=== PATIENT | female | born 1955 | race Caucasian/White ===

== ENCOUNTER 2018-06-27 13:55 | Inpatient (IN) | payer OTHER ==
[2018-06-27 14:26] LABS: ADD MAN DIFF? NO
[2018-06-27 14:44] LABS: WHITE BLOOD COUNT 6.5 10^3/ul (4.8-10.8)
[2018-06-27 14:44] LABS: BASOPHILS % 0.5 % (0.0-2.0); EOSINOPHILS # 0.1 10^3/ul (0.0-0.5); HEMATOCRIT 44.2 % (37.0-47.0); HEMOGLOBIN 14.4 g/dl (12.0-16.0); LYMPHOCYTES # 2.8 10^3/ul (0.8-2.9); LYMPHOCYTES % 43.4 % (15.0-51.0); MEAN CORPUSCULAR HEMOGLOBIN 30.1 pg (29.0-33.0); MEAN CORPUSCULAR HGB CONC 32.6 g/dl (32.0-37.0); MEAN CORPUSCULAR VOLUME 92.3 fl (82.0-101.0); MEAN PLATELET VOLUME 10.2 fl (7.4-10.4); MONOCYTE # 0.5 10^3/ul (0.3-0.9); MONOCYTES % 7.3 % (0.0-11.0); NEUTROPHILS % 46.6 % (39.0-77.0); PLATELET COUNT 277 10^3/UL (140-415); RED BLOOD COUNT 4.79 10^6/ul (4.20-5.40); RED CELL DISTRIBUTION WIDTH 12.2 % (11.5-14.5)
[2018-06-27 14:54] LABS: ANION GAP 10 (5-13); BLOOD UREA NITROGEN 13 mg/dl (7-20); CALCIUM 9.6 mg/dl (8.4-10.2); CARBON DIOXIDE 28 mmol/L (21-31); CHLORIDE 103 mmol/L (97-110); CHOLESTEROL 239 mg/dl (100-200); CREATININE 0.64 mg/dl (0.44-1.00); Estimated GFR > 60 mL/min (>60); GLUCOSE 102 mg/dl (70-220); HDL CHOLESTEROL 34 mg/dl (35-98); LDL CHOLESTEROL,CALCULATED 157 mg/dl; POTASSIUM 4.1 mmol/L (3.5-5.1); SODIUM 141 mmol/L (135-144); TRIGLYCERIDES 241 mg/dl (0-149)
[2018-06-27 14:55] LABS: ADD UMIC YES; UR ASCORBIC ACID NEGATIVE (NEGATIVE); UR BILIRUBIN (Dip) NEGATIVE (NEGATIVE); UR BLOOD (Dip) NEGATIVE (NEGATIVE); UR CLARITY SLIGHTLY CLOUDY (CLEAR); UR COLOR YELLOW (YELLOW); UR GLUCOSE (Dip) NEGATIVE (NEGATIVE); UR KETONES (Dip) NEGATIVE (NEGATIVE); UR LEUKOCYTE ESTERASE (Dip) 2+ Leu/ul (NEGATIVE); UR NITRITE (Dip) NEGATIVE (NEGATIVE); UR RBC 1 /HPF (0-5); UR SPECIFIC GRAVITY (Dip) 1.012 (1.003-1.030); UR SQUAMOUS EPITHELIAL CELL FEW /HPF (FEW); UR TOTAL PROTEIN (Dip) NEGATIVE (NEGATIVE); UR UROBILINOGEN (Dip) NEGATIVE (NEGATIVE); UR WBC 3 /HPF (0-5)
[2018-06-27 15:04] LABS: INR 0.95; PROTIME 12.8 Sec (11.9-14.9)
[2018-06-27 15:05] LABS: PARTIAL THROMBOPLASTIN TIME 28.6 Sec (23.0-35.0); TROPONIN-I < 0.012 ng/ml (0.000-0.120)
[2018-06-27 15:06] LABS: AMPHETAMINE/METHAMPHETAMINE Negative (NEGATIVE); BARBITURATES Negative (NEGATIVE); BENZODIAZEPINES Negative (NEGATIVE); CANNABINOIDS Negative (NEGATIVE); COCAINE Negative (NEGATIVE); OPIATES Negative (NEGATIVE)
[2018-06-27 15:23] LABS: HEMOGLOBIN A1C 5.7 % (0-5.9)
[2018-06-27] MEDS: ASPIRIN 81 MG TAB PO (16:03)
[2018-06-27] MEDS ORDERED: ONDANSETRON 4 MG INJ IV ×2 (16:30→17:00)
[2018-06-27] MEDS ORDERED: ACETAMINOPHEN 325 MG TAB PO ×2 (16:30→17:00)
[2018-06-27] MEDS ORDERED: NACL 0.9% 3 ML SYG IV (17:00)
[2018-06-27] MEDS ORDERED: HYDROCODONE/APAP (5/325) TAB PO (17:00)
[2018-06-27] MEDS: predniSONE 20 MG TAB PO (17:34)
[2018-06-27] MEDS: CIPROFLOXACIN 500 MG TAB PO (17:34)
[2018-06-27] MEDS: SOD CHLORIDE 0.9% 1,000 ML IV (17:35)
[2018-06-27] MEDS: ATORVASTATIN 80 MG TAB PO (20:24)
[2018-06-27] MEDS: GEMFIBROZIL 600 MG TAB PO (20:24)
[2018-06-27] MEDS: VALACYCLOVIR 500 MG TAB PO (20:24)
[2018-06-28] MEDS: CIPROFLOXACIN 500 MG TAB PO ×2 (05:38→17:55)
[2018-06-28 05:40] LABS: ADD MAN DIFF? NO
[2018-06-28 05:48] LABS: BASOPHILS % 0.1 % (0.0-2.0); HEMATOCRIT 43.3 % (37.0-47.0); HEMOGLOBIN 14.2 g/dl (12.0-16.0); LYMPHOCYTES # 1.4 10^3/ul (0.8-2.9); MEAN CORPUSCULAR HEMOGLOBIN 29.8 pg (29.0-33.0); MEAN CORPUSCULAR HGB CONC 32.8 g/dl (32.0-37.0); MEAN CORPUSCULAR VOLUME 90.8 fl (82.0-101.0); MEAN PLATELET VOLUME 10.4 fl (7.4-10.4); MONOCYTE # 0.2 10^3/ul (0.3-0.9); MONOCYTES % 3.4 % (0.0-11.0); NEUTROPHIL # 5.3 10^3/ul (1.6-7.5); NEUTROPHILS % 75.9 % (39.0-77.0); PLATELET COUNT 265 10^3/UL (140-415); RED BLOOD COUNT 4.77 10^6/ul (4.20-5.40); RED CELL DISTRIBUTION WIDTH 12.5 % (11.5-14.5)
[2018-06-28 06:15] LABS: ALANINE AMINOTRANSFERASE 17 IU/L (13-69); ALBUMIN 5.2 g/dl (3.3-4.9); ALBUMIN/GLOBULIN RATIO 2.08; ALKALINE PHOSPHATASE 76 IU/L (42-121); ANION GAP 17 (5-13); ASPARTATE AMINO TRANSFERASE 29 IU/L (15-46); BILIRUBIN,INDIRECT 1.6 mg/dl (0-1.1); BILIRUBIN,TOTAL 1.6 mg/dl (0.2-1.3); BLOOD UREA NITROGEN 12 mg/dl (7-20); CALCIUM 9.5 mg/dl (8.4-10.2); CARBON DIOXIDE 24 mmol/L (21-31); CHLORIDE 103 mmol/L (97-110); CREATININE 0.46 mg/dl (0.44-1.00); Estimated GFR > 60 mL/min (>60); GLUCOSE 126 mg/dl (70-220); MAGNESIUM 1.8 mg/dl (1.7-2.5); POTASSIUM 4.1 mmol/L (3.5-5.1); SODIUM 144 mmol/L (135-144); TOTAL PROTEIN 7.7 g/dl (6.1-8.1)
[2018-06-28] MEDS: ALLOPURINOL 100 MG TAB PO (08:43)
[2018-06-28] MEDS: predniSONE 20 MG TAB PO (08:43)
[2018-06-28] MEDS: GEMFIBROZIL 600 MG TAB PO ×2 (08:43→21:20)
[2018-06-28] MEDS: LISINOPRIL 5 MG TAB PO (08:43)
[2018-06-28] MEDS: HYDROCHLOROTHIAZIDE 25 MG TAB PO (08:44)
[2018-06-28] MEDS: ASPIRIN 81 MG TAB PO (08:44)
[2018-06-28] MEDS: ATENOLOL 50 MG TAB PO (08:44)
[2018-06-28] MEDS: CARBOXYMETHYLCELLULOSE 0.5% 0.4 ML OPH LEFT EYE ×4 (09:00→21:32)
[2018-06-28] MEDS: VALACYCLOVIR 500 MG TAB PO ×3 (09:00→21:20)
[2018-06-28] MEDS: SOD CHLORIDE 0.9% 1,000 ML IV (14:00)
[2018-06-28] MEDS: IOHEXOL 100 ML (15:33)
[2018-06-28] MEDS: SOD CHLORIDE 0.9% 100 ML (15:33)
[2018-06-29 05:25] LABS: ADD MAN DIFF? NO
[2018-06-29 05:34] LABS: WHITE BLOOD COUNT 10.6 10^3/ul (4.8-10.8)
[2018-06-29 05:34] LABS: BASOPHILS % 0.3 % (0.0-2.0); EOSINOPHILS % 0.4 % (0.0-7.0); HEMATOCRIT 41.8 % (37.0-47.0); HEMOGLOBIN 13.7 g/dl (12.0-16.0); LYMPHOCYTES # 2.8 10^3/ul (0.8-2.9); LYMPHOCYTES % 26.3 % (15.0-51.0); MEAN CORPUSCULAR HEMOGLOBIN 30.1 pg (29.0-33.0); MEAN CORPUSCULAR HGB CONC 32.8 g/dl (32.0-37.0); MEAN CORPUSCULAR VOLUME 91.9 fl (82.0-101.0); MEAN PLATELET VOLUME 10.5 fl (7.4-10.4); MONOCYTE # 0.8 10^3/ul (0.3-0.9); MONOCYTES % 7.9 % (0.0-11.0); NEUTROPHIL # 6.8 10^3/ul (1.6-7.5); NEUTROPHILS % 64.7 % (39.0-77.0); PLATELET COUNT 257 10^3/UL (140-415); RED BLOOD COUNT 4.55 10^6/ul (4.20-5.40); RED CELL DISTRIBUTION WIDTH 12.4 % (11.5-14.5)
[2018-06-29 06:28] LABS: ANION GAP 13 (5-13); BLOOD UREA NITROGEN 19 mg/dl (7-20); CALCIUM 9.2 mg/dl (8.4-10.2); CARBON DIOXIDE 24 mmol/L (21-31); CHLORIDE 104 mmol/L (97-110); CREATININE 0.57 mg/dl (0.44-1.00); Estimated GFR > 60 mL/min (>60); GLUCOSE 103 mg/dl (70-220); MAGNESIUM 1.9 mg/dl (1.7-2.5); PHOSPHORUS 5.3 mg/dl (2.5-4.9); SODIUM 141 mmol/L (135-144)
[2018-06-29] MEDS: CIPROFLOXACIN 500 MG TAB PO (06:35)
[2018-06-29] MEDS: SOD CHLORIDE 0.9% 1,000 ML IV (09:00)
[2018-06-29] MEDS: CARBOXYMETHYLCELLULOSE 0.5% 0.4 ML OPH LEFT EYE ×2 (09:00→13:28)
[2018-06-29] MEDS: HYDROCHLOROTHIAZIDE 25 MG TAB PO (09:26)
[2018-06-29] MEDS: ATENOLOL 50 MG TAB PO (09:26)
[2018-06-29] MEDS: VALACYCLOVIR 500 MG TAB PO ×2 (09:26→13:24)
[2018-06-29] MEDS: GEMFIBROZIL 600 MG TAB PO (09:27)
[2018-06-29] MEDS: LISINOPRIL 5 MG TAB PO (09:27)
[2018-06-29] MEDS: ALLOPURINOL 100 MG TAB PO (09:27)
[2018-06-29] MEDS: predniSONE 20 MG TAB PO (09:27)
[2018-06-29] MEDS: ASPIRIN 81 MG TAB PO (13:28)
== END 2018-06-29 15:48 | disposition home or self-care (01) | DRG 74 ==
LOC: E/R 13:55 → 6WM 16:04
DX: G51.0 Bell's palsy (principal); N39.0 Urinary tract infection, site not specified; G45.9 Transient cerebral ischemic attack, unspecified; I10 Essential (primary) hypertension; E78.5 Hyperlipidemia, unspecified
CPT/HCPCS: 36415; 70450; 70496; 70498; 70544; 70549; 70551; 71045; 80048; 80053; 80061; 80307; 81001; 83036; 83735; 84100; 84443; 84484; 85025; 85610; 85730; 90686; 93005; 93306; 99285-25

== ENCOUNTER 2019-02-01 16:34 | Emergency (ER) | payer OTHER ==
[2019-02-01] MEDS: ASPIRIN 81 MG TAB PO (20:38)
== END 2019-02-01 21:08 | disposition home or self-care (01) ==
LOC: FTE 16:34
DX: G51.0 Bell's palsy (principal); I10 Essential (primary) hypertension; Z79.82 Long term (current) use of aspirin
CPT/HCPCS: 70450; 93005; 99284-25

== ENCOUNTER 2019-03-21 19:27 | Emergency (ER) | payer OTHER ==
[2019-03-21] MEDS: KETOROLAC 30 MG INJ IM (20:51)
[2019-03-21] MEDS: DEXAMETHASONE 10 MG/ML 1 ML INJ IM (20:52)
== END 2019-03-21 21:59 | disposition home or self-care (01) ==
LOC: FTE 21:59
DX: M79.601 Pain in right arm (principal); I10 Essential (primary) hypertension; E03.9 Hypothyroidism, unspecified; Z79.82 Long term (current) use of aspirin
CPT/HCPCS: 73030; 73030-RT; 96372; 99284-25